=== PATIENT | female | born 1995 | race Two or more races ===

== ENCOUNTER 2024-09-15 09:30 | Outpatient (RCR) | payer MEDICAID, SELFPAY ==
--- NOTE | 2024-08-30 11:10 | PT.OIERPT ---
PT OP Initial Eval Patient Information Outpatient Physical Therapy Treatment Date: 08/30/24 Visit Reasons: Low back pain Medical Diagnosis: Back Pain Treatment Dx #1: Back Pain Start of Care: 08/30/24 Date of Onset: 6 months ago Smoking Status Smoking Status: Never smoker Initial Assessment Subjective: Pt is a 28 y/o female reports of chronic back pain (10/26) with numbness down her left leg worsening 6 months ago. Pt's MRI showed multi-level disc bulge worse on L4-L5 with 5mm disc bulge. Pt has limitation with sitting, standing, chores, lifting, self care, cooking, cleaning, work duties, and performing recreational activities. Objective: L/S AROM: all motions are WFL end range into flexion Hip PROM: all motions are WFL except IR bilaterally Hip MMTs: grossly 3+/5 Special Test (+) slump Assessment: Pt demonstrate back pain with mobility deficits leading to difficulty with ADLs. Pt will attempt physical therapy if pain persist Pt will be refer back to provider. Short Term and Correction Goals 1) Increase L/S AROM WNL in 6 wks to be able to perform chores 2) Decrease back pain to 2/10 in 6 wks to be able to sit and stand more than 30 mins 3) Increase core strength WFL in 6 wks to be able to perform recreational activities 4) Increase hip MMTs grossly to 4-/5 in 6 wks to be able to walk more than 30 mins 5) Indep with HEP Treatment Plan 1) Manual Therapy 2) Therapeutic Activities 3) Therapeutic Exercises 4) Modalities (ice, heat, traction) Frequency and Duration: 2 x wk for 6 wks Certification Dates: 08/30/24 to 11/30/24 Procedure Charges OP PT Eval Mod Complex 30 minutes: Yes
--- NOTE | 2024-09-04 09:53 | PT.ODAYNRPT ---
PT Outpatient Daily Note OP Daily Note Outpatient Physical Therapy Treatment Date: 09/04/24 Visit Reasons: Low back pain Subjective: Pt's back is doing okay. No change in overall symptoms. Objective: Please see flow chart for list of ther ex performed Assessment: tolerate exercises with minimal pain Plan: Continue with PT Length of Time (minutes) of Treatment: 30 Minutes Procedure Charges Therapeutic Exercise 30 minutes: Yes
--- NOTE | 2024-09-07 10:19 | PT.ODAYNRPT ---
PT Outpatient Daily Note OP Daily Note Outpatient Physical Therapy Treatment Date: 09/07/24 Visit Reasons: Low back pain Subjective: Pt reports LBP is moderate with pain down the leg and calf. Objective: Please see flow sheet for ther ex list. Assessment: Pt educated on repeated lumbar extension in laying, encouraged to perform for HEP pt agreed. Plan: Continue with pOC, assess response to HEP. Length of Time (minutes) of Treatment: 30 Minutes Procedure Charges Therapeutic Exercise 30 minutes: Yes
--- NOTE | 2024-09-15 10:14 | PT.ODAYNRPT ---
PT Outpatient Daily Note OP Daily Note Outpatient Physical Therapy Treatment Date: 09/15/24 Visit Reasons: Low back pain Subjective: Pt's back is better. Pt still has pain intermittently. Objective: Please see flow chart for list of ther ex performed Assessment: tolerate exercises with minimal pain; cues to correct low/row exercise to decrease upper trape engagement Plan: Continue with PT Length of Time (minutes) of Treatment: 30 Minutes Procedure Charges Therapeutic Exercise 30 minutes: Yes
== END 2024-09-16 23:59 | disposition home or self-care (01) ==
LOC: CPTX 09:30
PROVIDERS: PCP Nurse Practitioner Family; Referring Provider Nurse Practitioner Family; Visit Provider Nurse Practitioner Family
DX: M54.9 Dorsalgia, unspecified (principal); G89.29 Other chronic pain; R20.0 Anesthesia of skin
CPT/HCPCS: 97110; 97162

== ENCOUNTER 2024-10-16 13:00 | Outpatient (RCR) | payer MEDICAID, SELFPAY ==
--- NOTE | 2024-09-22 10:42 | PT.ODAYNRPT ---
PT Outpatient Daily Note OP Daily Note Outpatient Physical Therapy Treatment Date: 09/22/24 Visit Reasons: low back pain Subjective: Pt's back is better. Pt has been able to do more yoga and stretches at home. Objective: Please see flow chart for list of ther ex performed Assessment: progressing patient to more core strengthening with good tolerance Plan: Continue with PT Length of Time (minutes) of Treatment: 30 Minutes Procedure Charges Therapeutic Exercise 30 minutes: Yes
--- NOTE | 2024-09-28 13:33 | PT.ODAYNRPT ---
PT Outpatient Daily Note OP Daily Note Outpatient Physical Therapy Treatment Date: 09/28/24 Visit Reasons: low back pain Subjective: Pt reports she was doing HEP bugs exercise at home when she heard her L hip pop. Pt is sore in her hip and felt some weird sensation on her L heel. Pt mentioned her hip is ok right now. Objective: Please see flow sheet for ther ex list. Assessment: Added planks exercise, pt completed with good mechanics and spine in neutral. Plan: Continue with pOC. Length of Time (minutes) of Treatment: 30 Minutes Procedure Charges Therapeutic Exercise 30 minutes: Yes
--- NOTE | 2024-10-03 13:12 | PT.ODAYNRPT ---
PT Outpatient Daily Note OP Daily Note Outpatient Physical Therapy Treatment Date: 10/03/24 Visit Reasons: low back pain Subjective: Pt reports back has been feeling better these last few weekends. Objective: Please see flow sheet for there x lsit. Assessment: Progressing interventions per pt tolerance. Plan: Continue with POC. Length of Time (minutes) of Treatment: 30 Minutes Procedure Charges Therapeutic Exercise 30 minutes: Yes
--- NOTE | 2024-10-16 14:07 | PT.ODAYNRPT ---
PT Outpatient Daily Note OP Daily Note Outpatient Physical Therapy Treatment Date: 10/16/24 Visit Reasons: low back pain Subjective: Pt reports back has been feeling better, has been doing yoga at home. Objective: Please see flow sheet for ther ex list. Assessment: Progression of interventions completed with muscle fatigue but no pain to report. Plan: Continue with POC. Length of Time (minutes) of Treatment: 30 Minutes Procedure Charges Therapeutic Exercise 30 minutes: Yes
== END 2024-10-16 23:59 | disposition home or self-care (01) ==
LOC: CPTX 13:00
PROVIDERS: PCP Nurse Practitioner Family; Referring Provider Nurse Practitioner Family; Visit Provider Nurse Practitioner Family
DX: M51.362 Other intervertebral disc degeneration, lumbar region with discogenic back pain and lower extremity pain (principal); R20.0 Anesthesia of skin; G89.29 Other chronic pain
CPT/HCPCS: 97110

== ENCOUNTER 2024-11-13 10:30 | Outpatient (RCR) | payer MEDICAID, SELFPAY ==
--- NOTE | 2024-10-24 15:55 | PT.ODAYNRPT ---
PT Outpatient Daily Note OP Daily Note Outpatient Physical Therapy Treatment Date: 10/24/24 Visit Reasons: LOW BACK PAIN Subjective: Pt reports back has been feeling better lately. Objective: Please see flow sheet for the doug list. Assessment: Progressing core strenghtening per pt tolerance. Plan: Continue with pOC. Length of Time (minutes) of Treatment: 30 Minutes Procedure Charges Therapeutic Exercise 30 minutes: Yes
--- NOTE | 2024-11-13 11:16 | PT.ODAYNRPT ---
PT Outpatient Daily Note OP Daily Note Outpatient Physical Therapy Treatment Date: 11/13/24 Visit Reasons: LOW BACK PAIN Subjective: Pt's back feels much better. Pt has been able to perfom ADLs with less limitation. Pt will like to continue physical therapy and finish 12 sessions. Objective: Please see flow chart for list of ther ex performed Assessment: added more core exercises with minimal pain reported. Cues to keep knee straight with wall plank hip abduction exercise Plan: Continue with PT Length of Time (minutes) of Treatment: 30 Minutes Procedure Charges Therapeutic Exercise 30 minutes: Yes
== END 2024-11-16 23:59 | disposition home or self-care (01) ==
LOC: CPTX 10:30
PROVIDERS: PCP Nurse Practitioner Family; Referring Provider Nurse Practitioner Family; Visit Provider Nurse Practitioner Family
DX: M51.360 Other intervertebral disc degeneration, lumbar region with discogenic back pain only (principal); G89.29 Other chronic pain; R20.0 Anesthesia of skin
CPT/HCPCS: 97110

== ENCOUNTER 2024-12-12 09:00 | Outpatient (RCR) | payer MEDICAID, SELFPAY ==
--- NOTE | 2024-12-06 09:43 | PT.ODAYNRPT ---
PT Outpatient Daily Note OP Daily Note Outpatient Physical Therapy Treatment Date: 12/06/24 Visit Reasons: low back pain Subjective: No new complaints or concerns. Objective: Pleae see flow sheet for ther ex list. Assessment: Pt demonstrates mild trunk flexion during planks corrects post verbal and tactile cues. Plan: Pt has one visit remaining. Length of Time (minutes) of Treatment: 30 Minutes Procedure Charges Therapeutic Exercise 30 minutes: Yes
--- NOTE | 2024-12-12 09:29 | PT.ODS1RPT ---
PT OP Progress/Discharge Note Date of Service: 12/12/24 Progress Note/DC Note Progress Note/Discharge Note: DC Note Patient Information Visit Reasons: low back pain Medical Diagnosis: Back Pain Treatment Dx #1: Back Pain Service Discharge Date: 12/12/24 Status Subjective: Pt's back feels good. Pt has been able to resume ADLs, chores, walk, and recreational activities with less limitation. At this time Pt feels comfortable being release from care with exercises to continue at home. Objective: L/S AROM: all motions are WNL Hip PROM: all motions are WNL Hip MMTs: grossly 4-/5 Assessment: Pt demonstrate functional L/S mobility and core strength allowing her to resume ADLs, ambulate, and perform recreational activities with minimal limitation. Pt will no longer benefit from physical therapy due to meeting set goals in therapy. Pt was instructed on HEP last session and educated to continue exercises to maintain overall mobility. Pt performed all exercises safely, thank you for your referrals. Plan: D/C home with HEP and follow up with MD BURCH Procedure Charges Therapeutic Exercise 30 minutes: Yes
== END 2024-12-17 23:59 | disposition home or self-care (01) ==
LOC: CPTX 09:00
PROVIDERS: PCP Nurse Practitioner Family; Referring Provider Nurse Practitioner Family; Visit Provider Nurse Practitioner Family
DX: M51.360 Other intervertebral disc degeneration, lumbar region with discogenic back pain only (principal); G89.29 Other chronic pain
CPT/HCPCS: 97110